=== PATIENT | female | born 1995 | race African-American/Black ===

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

== ENCOUNTER 2017-05-12 15:22 | Emergency (ER) | payer OTHER ==
[~2017-05-12] VITALS: Ht 152.4 cm; Wt 52.6 kg
[~2017-05-12 15:22] MED LIST: DOXY1TAB3 PO; PREN1TAB58 PO
[2017-05-12 15:30] VITALS: BP 119/59
[2017-05-12] MEDS ORDERED: AZITHROMYCIN 250 MG TABLET. PO ONE (16:00)
[2017-05-12] MEDS ORDERED: cefTRIAXone IM 250 MG VIAL IM ONE (16:00)
[2017-05-12] MEDS ORDERED: metroNIDAZOLE 500 MG TABLET PO ONE (16:00)
--- NOTE | 2017-05-12 16:05 | PHYS DOC ---
Past Medical History Past Medical History: Past Surgical History: Other Additional Past Surgical Histo: Alcohol Use: None Drug Use: None Adult General Chief Complaint Chief Complaint: VAGINAL PROBLEM HPI HPI Patient is a 22 year old with female who presents with vaginal bleeding. Patient states she started her menstrual cycle May 04, 2017. She states her cycle lasted for 4 days and stopped. She states she took control pill for the first time on the second day of her cycle. She states 3 days ago she started spotting. Patient states today she is cramping. Patient is also concerned for STDs and would like to be tested and treated. Review of Systems Review of Systems Constitutional: Denies fever or chills [] Eyes: Denies change in visual acuity, redness, or eye pain [] HENT: Denies nasal congestion or sore throat [] Respiratory: Denies cough or shortness of breath [] Cardiovascular: No additional information not addressed in HPI [] GI: Vaginal bleeding and abdominal cramping : Denies dysuria or hematuria [] Musculoskeletal: Denies back pain or joint pain [] Integument: Denies rash or skin lesions [] Neurologic: Denies headache, focal weakness or sensory changes [] Current Medications Current Medications Current Medications Medications (Trade) Dose Ordered Sig/Hillary Start Time Stop Time Status Last Admin Dose Admin Azithromycin (Zithromax) 1,000 mg 1X ONCE 05/12/17 16:00 05/12/17 16:01 DC 05/12/17 16:08 1,000 MG Ceftriaxone Sodium (Rocephin Im) 250 mg 1X ONCE 05/12/17 16:00 05/12/17 16:01 DC 05/12/17 16:07 250 MG Metronidazole (Flagyl) 2,000 mg 1X ONCE 05/12/17 16:00 05/12/17 16:01 DC 05/12/17 16:08 2,000 MG Allergies Allergies Allergies Coded Allergies Type Severity Reaction Last Updated Verified No Known Drug Allergies 10/13/13 No Physical Exam Physical Exam Constitutional: Well developed, well nourished, no acute distress, non-toxic appearance. [] HENT: Normocephalic, atraumatic, bilateral external ears normal, oropharynx moist, no oral exudates, nose normal. [] Eyes: PERRLA, EOMI, conjunctiva normal, no discharge. [] Neck: Normal range of motion, no tenderness, supple, no stridor. [] Cardiovascular:Heart rate regular rhythm, no murmur [] Lungs & Thorax: Bilateral breath sounds clear to auscultation [] Abdomen: Bowel sounds normal, soft, no tenderness, no masses, no pulsatile masses. [] Pelvic exam External pelvic appears normal, cervix is closed, no CMT, no adnexal tenderness , small amount of bright red blood in the vaginal vault consistent with spotting. Skin: Warm, dry, no erythema, no rash. [] Back: No tenderness, no CVA tenderness. [] Extremities: No tenderness, no cyanosis, no clubbing, ROM intact, no edema. [] Neurologic: Alert and oriented X 3, normal motor function, normal sensory function, no focal deficits noted. [] Psychologic: Affect normal, judgement normal, mood normal. [] Current Patient Data Vital Signs Vital Signs Date Time Temp Pulse Resp B/P (MAP) Pulse Ox O2 Delivery O2 Flow Rate FiO2 05/12/17 15:30 98.6 43 18 98 Room Air 98.6 Lab Values Laboratory Tests Test 05/12/17 15:30 05/12/17 15:43 Urine Collection Type Unknown Urine Color Yellow Urine Clarity Clear Urine pH 6.0 Urine Specific [place] 1.010 Urine Protein Negative mg/dL (NEG-TRACE) Urine Glucose (UA) Negative mg/dL (NEG) Urine Ketones (Stick) Negative mg/dL (NEG) Urine Blood Large (NEG) Urine Nitrite Negative (NEG) Urine Bilirubin Negative (NEG) Urine Urobilinogen Dipstick 0.2 mg/dL (0.2 mg/dL) Urine Leukocyte Esterase Negative (NEG) Urine RBC 1-2 /HPF (0-2) Urine WBC 1-4 /HPF (0-4) Urine Squamous Epithelial Cells Mod /LPF Urine Bacteria 0 /HPF (0-FEW) Urine Mucus Slight /LPF POC Urine HCG, Qualitative Hcg negative (Negative) Microbiology 05/12/17 Wet Prep - Final, Complete EKG EKG [] Radiology/Procedures Radiology/Procedures [] Course & Med Decision Making Course & Med Decision Making Pertinent Labs and Imaging studies reviewed. (See chart for details) This is a 22-year-old female patient presenting to the ED today with dysfunctional uterine bleeding. She is also concerned for STDs and would like to be tested and treated. Patient was given Flagyl Rocephin and azithromycin in the ED. Urine analysis is negative for infection. Patient is positive for BV. Discharge and Flagyl. Provided STD education and follow-up information especially the need to see an [employer]. Adair Disclaimer Adair Disclaimer This electronic medical record was generated, in whole or in part, using a voice recognition dictation system. Departure Departure Impression: Primary Impression: Dysfunctional uterine bleeding Additional Impressions: Concern about STD in female without diagnosis Bacterial vaginosis Disposition: HOME, SELF-CARE Condition: STABLE Referrals: SUDHA FRAGOSO NP-C (PCP) follow up with your OBGYN in 1 week Patient Instructions: Sexually Transmitted Disease, Uterine Bleeding, Dysfunctional Additional Instructions: You were seen for dysfunctional uterine bleeding. You need to follow up with an [employer] in the next 1-2 weeks. You were treated prophylaxis for STDs. Use protection at all times. Do not have sex for 7 days, contact all your sex partners and let them know you were treated for STDs and ask them to seek treatment too. You also have bacterial vaginosis and were put on antibiotics for 7 days, ensure you complete them. This is not an STD. Scripts Metronidazole (FLAGYL) 500 Mg Tablet 1 TAB PO BID, #14 TAB Prov: DAY GARCIA APRN 05/12/17 Problem Qualifiers DAY GARCIA APRN May 12, 2017 16:05
[2017-05-12 16:11] LABS: BILIRUBIN,URINE NEGATIVE (NEG); GLUCOSE,URINE NEGATIVE (NEG); NITRITE,URINE NEGATIVE (NEG); PROTEIN,URINE NEGATIVE (NEG-TRACE); UROBILINOGEN,URINE 0.2 mg/dL (0.2 mg/dL)
[2017-05-12 16:30] LABS: BACTERIA,URINE 0 /HPF (0-FEW)
[2017-05-12 16:31] LABS: SQUAMOUS EPITHELIAL CELL,UR MOD /LPF
[2017-05-12] MEDS ORDERED: METR500T PO (16:38)
== END 2017-05-12 16:40 | disposition home or self-care (01) ==
LOC: ER 15:22
DX: N93.8 Other specified abnormal uterine and vaginal bleeding (principal); N76.0 Acute vaginitis; B96.89 Other specified bacterial agents as the cause of diseases classified elsewhere; Z20.2 Contact with and (suspected) exposure to infections with a predominantly sexual mode of transmission
CPT/HCPCS: 81001; 81025; 87491; 87591; 96372; 99284; J0696; Q0111; Q0144

== ENCOUNTER 2017-07-30 16:01 | Emergency (ER) | payer OTHER ==
[~2017-07-30] VITALS: Ht 152.4 cm; Wt 52.6 kg
[~2017-07-30 16:01] MED LIST changes: +METR500T PO
[2017-07-30 16:30] VITALS: BP 99/64
[2017-07-30] MEDS ORDERED: DOXY1TAB3 PO (16:37)
[2017-07-30] MEDS ORDERED: PNV1TABL25 PO (16:37)
--- NOTE | 2017-07-30 16:37 | PHYS DOC ---
Past Medical History Past Medical History: Past Surgical History: Other Additional Past Surgical Histo: Alcohol Use: None Drug Use: None Adult General Chief Complaint Chief Complaint: VAGINAL PROBLEM HPI HPI Patient is a 22 year old male presents to the emergency department with request for STD testing. Patient reports that she is but is no vaginal discharge or bleeding. She has no abdominal pain, no pelvic pain. Review of Systems Review of Systems Constitutional: Denies fever or chills [] Eyes: Denies change in visual acuity, redness, or eye pain [] HENT: Denies nasal congestion or sore throat [] Respiratory: Denies cough or shortness of breath [] Cardiovascular: No additional information not addressed in HPI [] GI: Denies abdominal pain, nausea, vomiting, bloody stools or diarrhea [] : Denies dysuria or hematuria and denies pelvic pain, denies vaginal discharge , denies vaginal bleeding. Reports she is 6 weeks . [] Musculoskeletal: Denies back pain or joint pain [] Integument: Denies rash or skin lesions [] Neurologic: Denies headache, focal weakness or sensory changes [] Endocrine: Denies polyuria or polydipsia [] All other systems were reviewed and found to be within normal limits, except as documented in this note. Allergies Allergies Allergies Coded Allergies Type Severity Reaction Last Updated Verified No Known Drug Allergies 10/13/13 No Physical Exam Physical Exam Constitutional: Well developed, well nourished, no acute distress, non-toxic appearance. [] Neck: Normal range of motion, no tenderness, supple, no stridor. [] Cardiovascular:Heart rate regular rhythm, no murmur [] Lungs & Thorax: Bilateral breath sounds clear to auscultation [] Abdomen: Bowel sounds normal, soft, no tenderness, no masses, no pulsatile masses. [] Skin: Warm, dry, no erythema, no rash. [] EKG EKG [] Radiology/Procedures Radiology/Procedures [] Course & Med Decision Making Course & Med Decision Making And is asymptomatic for an STD. I advised her to follow up with her OB doctor for further evaluation should she develop symptoms. Patient was prescribed Diclegist and vitamins for nausea and and early . Pertinent Labs and Imaging studies reviewed. (See chart for details) [] Dragon Disclaimer Dragon Disclaimer This electronic medical record was generated, in whole or in part, using a voice recognition dictation system. Departure Departure Impression: Primary Impression: Concern about STD in female without diagnosis Additional Impression: Disposition: 01 HOME, SELF-CARE Condition: STABLE Referrals: SUDHA FRAGOSOC (PCP) [facility] Patient Instructions: ABCs of Scripts Pnv Cmb#95/Ferrous Fumarate/Fa ( TABLET) 1 Each Tablet 1 TAB PO DAILY, #90 TAB 3 Refills Prov: FREDDIE LEI APRN 07/30/17 Doxylamine/Pyridoxine Hcl (SUSHIL HOOKER 10-10 MG TABLET) 1 Each Tablet. 1 EACH PO TID Y for NAUSEA, #20 TAB.SR Prov: FREDDIE LEI APRN 07/30/17 Problem Qualifiers Additional Impression: Weeks of gestation: less than 8 weeks Qualified Codes: Z3A.01 - Less than 8 weeks gestation of FREDDIE LEI APRN Jul 30, 2017 16:37
== END 2017-07-30 16:40 | disposition home or self-care (01) ==
LOC: ER 16:01
DX: Z11.3 Encounter for screening for infections with a predominantly sexual mode of transmission (principal); Z3A.01 Less than 8 weeks gestation of pregnancy
CPT/HCPCS: 99283

== ENCOUNTER 2017-11-10 19:43 | Observation (INO) | payer OTHER ==
[2017-11-10] MEDS ORDERED: IV RINGERS,LACTATED 1000ML 1,000 ML IV (19:45)
[2017-11-10 20:20] LABS: BILIRUBIN,URINE NEGATIVE (NEG); CLARITY,URINE CLEAR; COLOR,URINE YELLOW; GLUCOSE,URINE NEGATIVE (NEG); NITRITE,URINE NEGATIVE (NEG); PH,URINE 6.5; PROTEIN,URINE NEGATIVE (NEG-TRACE)
[2017-11-10 20:27] LABS: BARBITURATES NEG (NEG); BENZODIAZEPINES NEG (NEG); CANNABINOIDS NEG (NEG); COCAINE NEG (NEG); METHADONE NEG (NEG); OPIATES NEG (NEG); PHENCYCLIDINE NEG (NEG)
[2017-11-10 20:28] LABS: AMPHETAMINE/METHAMPHETAMINE NEG (NEG); ETHANOL, URINE NEG (NEG)
[2017-11-10 20:29] LABS: BACTERIA,URINE MANY /HPF (0-FEW); RBC,URINE 0 /HPF (0-2); SQUAMOUS EPITHELIAL CELL,UR OCC /LPF
== END 2017-11-10 20:51 | disposition home or self-care (01) ==
LOC: 3 SO LND 19:43
DX: O26.892 Other specified pregnancy related conditions, second trimester (principal); R10.2 Pelvic and perineal pain; Z3A.22 22 weeks gestation of pregnancy
CPT/HCPCS: 80307; 81001; 87086; G0378; G0379